=== PATIENT | female | born 1980 | race Caucasian/White ===

== ENCOUNTER 2021-12-11 12:47 | Outpatient (CLI) | payer OTHER, SELFPAY ==
--- NOTE | ~2021-12-11 | US_ITS ---
EXAMINATION: US pelvic complete w TV DATE: 12/11/2021 13:14 INDICATION: Abnormal uterine bleeding Comparison:No prior studies for comparison. TECHNIQUE: Multiple transabdominal and endovaginal sonographic images of the pelvis performed. FINDINGS: The uterus measures 7.6 x 3.8 x 5.7 cm. The endometrial complex measures 6 mm. The right ovary measures 3 x 1.8 x 2.9 cm and the left ovary measures 2.7 x 1.8 x 2.6 cm. There are small follicles in each ovary. Normal doppler signal in both ovaries. There is no free fluid in the pelvis. There are no abnormal masses seen on either side. IMPRESSION: 1. Unremarkable pelvic ultrasound. Reviewed, dictated and finalized at location A.
== END 2021-12-11 12:48 ==
PROVIDERS: PCP Family Medicine; Visit Provider Student in an Organized Health Care Education/Training Program
DX: N93.9 Abnormal uterine and vaginal bleeding, unspecified (principal)
CPT/HCPCS: 76830; 76856

== ENCOUNTER → 2022-02-07 13:20 | Outpatient (CLI) | payer OTHER, SELFPAY ==
--- NOTE | ~2022-02-07 | MM_ITS ---
EXAMINATION: MM screening julio BI w [facility] HISTORY: Screening mammogram TECHNIQUE: Craniocaudal and mediolateral oblique 3-D tomosynthesis images were obtained and synthetic 2-D images were generated. CAD analysis was submitted and interpreted. COMPARISON: No prior mammogram is available for comparison at this institution. BREAST PARENCHYMAL COMPOSITION: The breasts are heterogeneously dense, which may obscure small masses . FINDINGS: There is no evidence of suspicious mass, calcification, or architectural distortion to sugg est malignancy in either breast. There has been no suspicious interval change. IMPRESSION: 1. No mammographic evidence of malignancy. 2. Recommend routine screening mammography in one year. BI-RADS Category 1: Negative Reviewed, dictated and finalized at location C.
== END ==
PROVIDERS: PCP Family Medicine; Visit Provider Student in an Organized Health Care Education/Training Program
DX: Z12.31 Encounter for screening mammogram for malignant neoplasm of breast (principal)
CPT/HCPCS: 77063; 77067

== ENCOUNTER 2023-02-06 08:00 | Outpatient (NON) | payer OTHER, SELFPAY | END 2023-02-06 08:01 | disposition home or self-care (01) | PROVIDERS: PCP Family Medicine; Visit Provider Internal Medicine Gastroenterology | DX: K62.89 Other specified diseases of anus and rectum (principal) | CPT/HCPCS: 88305 ==

== ENCOUNTER 2023-02-06 08:47 | Day surgery (SDC) | payer OTHER, SELFPAY ==
[2022-12-12 09:40] VITALS: BMI 20.5
--- NOTE | 2023-02-05 12:22 | PM.HPGS ---
History of Present Illness History of Present Illness Consent: Risks, benefits, and alternatives have been discussed and questions answered. Patient agrees to proceed with procedure. Chief complaint: ABN CT, Other Specifed Diseases of Anus & Rectum Narrative: Trina Kulkarni is a 43 year old female here for investigation of symptoms that started abruptly and so intense that she felt like she was in labor. She reports burning sensation with passing stools but this has improved and is able to sit down now. She denies passing any blood. She denies any change in bowel habits and denies any significant hx of constipation or diarrhea. No abdominal pain,? nausea or vomiting, or fevers. No recent rectal trauma. ? She eventually followed up [facility] for further evaluation. CT scan revealed thickening of the rectal wall and hazy inflammation like changes within the rectum.? She was given prescriptions for Anusol and diclofenac and the seem to be helping.She has had a total of stones in each time the pain in her rectum is so severe, it feels like she is having a baby. It will last for a day or 2. She did some medications and she had been prescribed For the 2nd episode. 1 year ago she had an IUD placed Review of Systems Review of Systems: All systems reviewed & are unremarkable except as noted in HPI and below PMFSH Past Medical History Medical History Anxiety History of x 2 both in 2002 History of mononucleosis History of transfusion of platelets History of vaginal delivery x 2 Rectal Pain Thrombocythemia Family History Family History Father Hypertension Mother Hypertension Grandparent Diabetes mellitus Cerebrovascular accident Alzheimer disease Social History Social History Smoking status: Former smoker Tobacco type: cigarettes Alcohol intake: current Substance use type: marijuana Other substance usage details: occasional Living arrangements: with family Additional living arrangements comments: [facility] Spiritual care concerns: No Meds Home Medications and Allergies Home Medications Medication Instructions Recorded Confirmed Type dextroamphetamine-amphetamine 20 20 mg PO DAILY 11/29/22 02/06/23 History mg tablet (Adderall) oxycodone 5 mg tablet 5 mg PO PRN PRN Pain 11/29/22 02/06/23 History pramoxine 1 % rectal cream 1 applic RECTAL PRN PRN Rectal 11/29/22 02/06/23 History Discomfort diclofenac sodium 75 mg 75 mg PO BID PRN pain #10 tabs 01/30/23 02/06/23 Rx tablet,delayed release tramadol 50 mg tablet 50 mg PO Q6H PRN pain #10 tabs 02/04/23 02/06/23 Rx Allergies Allergy/AdvReac Type Severity Reaction Status Date / Time dexamehtasone Allergy Severe Anaphylaxis Uncoded 02/06/23 09:36 Exam Const: General: alert Orientation/consciousness: patient oriented x3 Resp: Auscultation: clear to auscultation bilaterally Cardio: Rhythm: regular rhythm GI: GI Palp: Yes Soft to palpation and No Tenderness to palpation present (GI) Neuro: General: patient oriented x3 Assessment and Plan Assessment and plan (1) Abnormal CT scan, gastrointestinal tract: Code(s): R93.3 - Abnormal findings on diagnostic imaging of other parts of digestive tract Status: Acute Assessment and Plan: Colonoscopy with possible biopsy or polypectomy or cautery or injection of substances.
--- NOTE | 2023-02-06 07:26 | WPDANESEPPF ---
Anes - Initial Pre Proc Eval Procedure: Operation Date: 02/06/23 10:30 Proposed Procedures p Diagnostic Colonoscopy - Koat Lynn MD Date/Time: 02/06/23 07:26 Surgeon: Kota Lynn MD Pre Op Diagnosis: ABN CT, Other Specifed Diseases of Anus & Rectum Patient Data Age: 43 Gender: F Height: 1.63 m Weight: 53.977 kg Allergies Allergy/AdvReac Type Severity Reaction Status Date / Time dexamehtasone Allergy Severe Anaphylaxis Uncoded 02/06/23 09:36 Home Medications Medication Instructions Recorded Confirmed Type dextroamphetamine-amphetamine 20 20 mg PO DAILY 11/29/22 02/06/23 History mg tablet (Adderall) oxycodone 5 mg tablet 5 mg PO PRN PRN Pain 11/29/22 02/06/23 History pramoxine 1 % rectal cream 1 applic RECTAL PRN PRN Rectal 11/29/22 02/06/23 History Discomfort diclofenac sodium 75 mg 75 mg PO BID PRN pain #10 tabs 01/30/23 02/06/23 Rx tablet,delayed release tramadol 50 mg tablet 50 mg PO Q6H PRN pain #10 tabs 02/04/23 02/06/23 Rx Patient hx anesthesia problems: none Family hx anesthesia problems: none Results Review: All pre-operative results and documents have been reviewed as part of the pre-operative evaluation. [facility] Past Medical History Medical History (Updated 02/05/23 @ 12:23 by Kota Lynn MD) Anxiety History of x 2 both in 2002 History of mononucleosis History of transfusion of platelets History of vaginal delivery x 2 Rectal Pain Thrombocythemia Family History Family History Father Hypertension Mother Hypertension Grandparent Diabetes mellitus Cerebrovascular accident Alzheimer disease Social History Social History (Updated 02/06/23 @ 09:44 by Berny Finnegan DO) Smoking status: Former smoker Tobacco type: cigarettes Alcohol intake: current Substance use type: marijuana Other substance usage details: occasional Living arrangements: with family Additional living arrangements comments: [facility] [place] Spiritual care concerns: No Anes - Eval Final PreProcedure Day of Procedure 02/06/23 07:26 Patient weight: normal Heart: regular rate and rhythm Lungs: clear to auscultation and normal air movement Airway: Mallampati scale class II Neurological: alert and oriented Last oral intake: >/= 8 hours ASA classification: II Emergent: no Anesthetic plan: proceed Anesthesia type and monitoring: general GIVS and standard monitoring Results Review: All pre-operative results and documents have been reviewed as part of the pre-operative evaluation. Informed Consent: The patient's anesthetic plan and its attendant risks and benefits were discussed with the patient/family/POA. Questions were solicited and answers provided to the satisfaction of the patient/family/POA.
[2023-02-06 09:38] VITALS: BP 122/66; PULSE 63; RESP 16; TEMP 37.2; O2SAT 100
[2023-02-06] MEDS: LACTATED RINGERS 1,000 ML 150 ML IV CONT (09:41)
[2023-02-06 11:06] VITALS: BP 95/61; PULSE 72; RESP 14; O2SAT 100
[2023-02-06 11:16] VITALS: BP 121/43; PULSE 73; RESP 20; O2SAT 100
[2023-02-06 11:26] VITALS: BP 133/61; PULSE 70; RESP 20; O2SAT 100
--- NOTE | 2023-02-06 13:08 | WPDANESPN ---
Anes - Prog Note Post-Op Date/Time: 02/06/23 13:08 Cardiovascular status: normal Respiratory status: normal Airway patency: baseline Mental status: baseline Post-Op hydration status: normal Vital Signs: Last Vital Signs Temp 37.2 C 02/06/23 09:38 Pulse 70 02/06/23 11:26 Resp 20 02/06/23 11:26 BP 133/61 02/06/23 11:26 Pulse Ox 100 02/06/23 11:26 O2 Del Method Room Air 02/06/23 11:26 Pain Score (VAS): 0 I/O: Intake & Output 02/05/23 02/06/23 02/06/23 23:59 07:59 15:59 Intake Total 1000 Balance 1000 Post-procedural complaints: none Patient Feedback: Patient satisfied with anesthetic care. Other Findings: Patient vital signs back to baseline. Patient denies nausea and vomiting. Patient's pain under control. Patient OK for discharge.
== END 2023-02-06 11:43 | disposition home or self-care (01) ==
PROVIDERS: PCP Family Medicine; Visit Provider Internal Medicine Gastroenterology
PROC: 0DJD8ZZ Inspection of Lower Intestinal Tract, Via Natural or Artificial Opening Endoscopic (ICD-10-PCS; CPT 45378; principal; 2023-02-06 10:30)
DX: R93.3 Abnormal findings on diagnostic imaging of other parts of digestive tract (principal); D12.5 Benign neoplasm of sigmoid colon; D37.5 Neoplasm of uncertain behavior of rectum
CPT/HCPCS: 45385; 45380